=== PATIENT | female | born 1985 | race Caucasian/White ===

== ENCOUNTER 2021-08-10 16:08 | Inpatient (IN) | payer OTHER ==
[~2021-08-10] VITALS: Ht 160 cm; Wt 59.0 kg
[2021-08-10 18:47] LABS: HEMOGLOBIN 12.9 gm/dl (12.3-15.3); RED BLOOD COUNT 3.98 M/UL (4.00-5.10); WHITE BLOOD COUNT 11.6 K/UL (4.5-11.0)
[2021-08-10 19:03] LABS: BUN/CREATININE RATIO 14 (0-10)
[2021-08-11 02:10] LABS: HEMOGLOBIN 11.4 gm/dl (12.3-15.3); RED BLOOD COUNT 3.58 M/UL (4.00-5.10); WHITE BLOOD COUNT 8.3 K/UL (4.5-11.0)
[2021-08-11 02:31] LABS: BUN/CREATININE RATIO 15 (0-10)
[2021-08-12 04:38] LABS: BUN/CREATININE RATIO 10 (0-10)
[2021-08-12 04:46] LABS: HEMOGLOBIN 12.2 gm/dl (12.3-15.3); RED BLOOD COUNT 3.81 M/UL (4.00-5.10); WHITE BLOOD COUNT 7.8 K/UL (4.5-11.0)
[2021-08-13 04:52] LABS: HEMOGLOBIN 12.2 gm/dl (12.3-15.3); RED BLOOD COUNT 3.85 M/UL (4.00-5.10)
[2021-08-13 05:27] LABS: BUN/CREATININE RATIO 17 (0-10)
[2021-08-13 06:11] LABS: HBSAG SCREEN Negative (Negative); HCV AB <0.1 (0.0-0.9); HEP B CORE AB, TOT Negative (Negative); RPR Non Reactive (Non Reactive)
[2021-08-13 07:13] LABS: HIV AB/P24 AG SCREEN Non Reactive (Non Reactive)
[2021-08-14 04:28] LABS: BUN/CREATININE RATIO 14 (0-10)
[2021-08-15 05:30] LABS: HEMOGLOBIN 12.3 gm/dl (12.3-15.3); RED BLOOD COUNT 3.87 M/UL (4.00-5.10); WHITE BLOOD COUNT 10.5 K/UL (4.5-11.0)
[2021-08-15 06:54] LABS: BUN/CREATININE RATIO 24 (0-10)
[2021-08-15] MEDS ORDERED: BACTRIM DS TAB1 EACH PO (09:52)
[2021-08-15] MEDS ORDERED: AMOX TR-K CLV1 EAC4 PO (09:52)
== END 2021-08-15 12:01 | disposition home or self-care (01) | DRG 603 ==
LOC: ER1 16:08 → M/S 23:52 → CDU 23:52 → M/S 08-11 01:11
PROVIDERS: Internal Medicine Infectious Disease; Physician Assistant; Physician Assistant Medical; Surgery; ADMIT Internal Medicine
PROC: 0J9G0ZZ Drainage of Right Lower Arm Subcutaneous Tissue and Fascia, Open Approach (ICD-10-PCS; principal; 2021-08-14 11:35)
DX: L02.413 Cutaneous abscess of right upper limb (principal); I82.90 Acute embolism and thrombosis of unspecified vein; Z20.822 Contact with and (suspected) exposure to COVID-19; L03.113 Cellulitis of right upper limb; F19.10 Other psychoactive substance abuse, uncomplicated; F15.10 Other stimulant abuse, uncomplicated; F32.A Depression, unspecified; F17.210 Nicotine dependence, cigarettes, uncomplicated; I80.8 Phlebitis and thrombophlebitis of other sites; F41.9 Anxiety disorder, unspecified; Z98.891 History of uterine scar from previous surgery; Z83.3 Family history of diabetes mellitus; Z98.51 Tubal ligation status
CPT/HCPCS: 36415; 73080; 73201; 80048; 80053; 80202; 83605; 83735; 85025; 85027; 85652; 86140; 86592; 86704; 86706; 86708; 86803; 87040; 87070; 87081; 87205; 87340; 87389; 96365; 96366; 96375; 99285; G0378; J0295; J0692; J1100; J1170; J1650; J1885; J2001; J2250; J2405; J2704; J3010; J3370; J7030; J7070; J7120; Q9967